=== PATIENT | female | born 1990 | race African-American/Black ===

== ENCOUNTER 2023-02-01 09:42 | Emergency (ER) | payer MEDICAID ==
[~2023-02-01] VITALS: Ht 172.7 cm; Wt 90.9 kg
[2023-02-01 09:49] VITALS: TEMP 98.2
[2023-02-01] MEDS ORDERED: GABAPENTIN 100 MG CAPSULE PO ONE (10:30)
[2023-02-01] MEDS ORDERED: LevETIRAcetam 500 MG TABLET PO ONE (10:30)
[2023-02-01] MEDS ORDERED: PredniSONE 20 MG TABLET PO ONE (11:15)
[2023-02-01 12:08] LABS: BASOPHILS % (AUTO) 0.8 % (0.0-2.0); EOSINOPHILS % (AUTO) 1.4 % (1.0-6.0); HEMATOCRIT 33.5 % (36-46); HEMOGLOBIN 11.1 g/dL (12.0-16.0); LYMPHOCYTES # (AUTO) 1.6 K/uL (1.0-4.8); LYMPHOCYTES % (AUTO) 35.5 % (22.0-44.0); MEAN CORPUSCULAR HEMOGLOBIN 27.1 pg (26.0-34.0); MEAN CORPUSCULAR VOLUME 82 fL (80-100); MONOCYTES # (AUTO) 0.3 K/uL (0.1-1.0); NEUTROPHILS # (AUTO) 2.6 K/uL (1.8-7.7); NEUTROPHILS % (AUTO) 56.3 % (40.0-70.0); PLATELET COUNT (AUTO) 242 K/uL (150-450); RED BLOOD CELL COUNT(AUTO) 4.09 MIL/uL (4.00-5.20); RED CELL DISTRIBUTION WIDTH 14.9 % (11.5-14.5); WHITE BLOOD COUNT (AUTO) 4.6 K/uL (4.5-11.0)
[2023-02-01 12:14] LABS: ANION GAP 4 mmol/L (8-16); CALCIUM, TOTAL 8.8 mg/dL (8.8-10.5); CARBON DIOXIDE 31 mmol/L (22-29); CHLORIDE 103 mmol/L (98-107); CREATININE 0.88 mg/dL (0.60-1.30); GLOMERULAR FILTR. RATE CALC > 60 mL/min (>60); GLUCOSE,RANDOM 85 mg/dL (70-110); POTASSIUM 4.2 mmol/L (3.5-5.1); SODIUM SERUM 138 mmol/L (136-145); UREA NITROGEN, BLOOD 8 mg/dL (7-18)
[2023-02-01 12:17] LABS: ALANINE AMINOTRANSFERASE 15 U/L (12-78); ALBUMIN 3.5 g/dL (3.4-5.0); ALKALINE PHOSPHATASE 43 U/L (46-116); ASPARTATE AMINOTRANSFERASE 26 U/L (15-37); BILIRUBIN,TOTAL 0.7 mg/dL (0.1-1.0); TOTAL PROTEIN, SERUM 7.5 g/dL (6.4-8.2)
[2023-02-01 12:21] LABS: ALCOHOL, BLOOD (SERUM) < 3 mg/dL (0-10)
[2023-02-01] MEDS ORDERED: SERT-158 PO (12:52)
[2023-02-01] MEDS ORDERED: LEVE500T20 PO (12:52)
[2023-02-01] MEDS ORDERED: GABA-1216 PO (12:52)
[2023-02-01 13:15] VITALS: BP 135/77; PULSE 65; RESP 18
== END 2023-02-01 13:52 | disposition home or self-care (01) ==
LOC: EMS 09:42
DX: G40.909 Epilepsy, unspecified, not intractable, without status epilepticus (principal); F25.9 Schizoaffective disorder, unspecified; F41.9 Anxiety disorder, unspecified; F32.A Depression, unspecified
CPT/HCPCS: 99283; 80053; 84703; 85025; 36415; G0480